=== PATIENT | female | born 1995 | race Caucasian/White ===

== ENCOUNTER 2021-12-03 10:11 | Inpatient (IN) | payer OTHER ==
[2021-12-03 11:20] LABS: BILIRUBIN NEGATIVE (NEGATIVE); BLOOD NEGATIVE Ery/uL (NEGATIVE); CLARITY CLEAR (CLEAR); COLOR YELLOW (YELLOW); GLUCOSE (U) NORMAL (NORMAL); LEUKOCYTES 1+ Leu/uL (NEGATIVE); NITRITE NEGATIVE (NEGATIVE); PROTEIN NEGATIVE (NEGATIVE); SPECIFIC GRAVITY 1.015 (1.001-1.030); UROBILINOGEN 0.2 mg/dL (0.2-1.0); pH 7.5 (5.0-9.0)
[2021-12-03 11:30] LABS: HCT 36.4 % (37.0-47.0); HGB 12.1 g/dl (12.5-16.0); MCH 28.3 pg (25.0-31.0); MCHC 33.2 g/dL (32.0-36.0); MCV 85.2 fL (78.0-100.0); MPV 10.3 fL (6.0-9.5); RBC 4.27 M/uL (4.20-5.40); RDW 13.7 % (11.5-14.0); WBC 14.9 K/uL (4.0-10.5)
[2021-12-03 11:54] LABS: ALBUMIN 2.7 g/dL (3.4-5.0); BILIRUBIN - TOTAL 0.9 mg/dL (0.2-1.0); BUN/CREAT RATIO (CALC) 10.7 RATIO; CREATININE 0.56 mg/dL (0.51-0.95); GLOBULIN (CALCULATION) 3.8 g/dL; POTASSIUM 3.7 mmol/L (3.5-5.1); TOTAL PROTEIN 6.5 g/dL (6.4-8.2)
[2021-12-03 11:56] LABS: BACTERIA 1+; URINARY RBC RARE
[2021-12-05 07:53] LABS: HCT 30.6 % (37.0-47.0); HGB 9.7 g/dl (12.5-16.0); MCHC 31.7 g/dL (32.0-36.0); MCV 88.4 fL (78.0-100.0); MPV 10.3 fL (6.0-9.5); RBC 3.46 M/uL (4.20-5.40); RDW 14.2 % (11.5-14.0); WBC 17.1 K/uL (4.0-10.5)
[2021-12-06] MEDS ORDERED: PRENATAL FORMU1 EACH PO (12:30)
[2021-12-06] MEDS ORDERED: IBUPROFEN800 MG PO (12:31)
== END 2021-12-06 17:51 | disposition home or self-care (01) | DRG 787 ==
LOC: FOD 10:11 → FIS 10:11 → FOB 10:13 → FOD 17:14 → FOB 17:15
PROVIDERS: ADMIT Obstetrics & Gynecology
PROC: 10907ZC Drainage of Amniotic Fluid, Therapeutic from Products of Conception, Via Natural or Artificial Opening (ICD-10-PCS; 2021-12-04)
PROC: 10D00Z1 Extraction of Products of Conception, Low, Open Approach (ICD-10-PCS; principal; 2021-12-04 02:30)
DX: O62.1 Secondary uterine inertia (principal); D62 Acute posthemorrhagic anemia; O24.425 Gestational diabetes mellitus in childbirth, controlled by oral hypoglycemic drugs; Z37.0 Single live birth; Z3A.38 38 weeks gestation of pregnancy; O99.214 Obesity complicating childbirth; Z20.822 Contact with and (suspected) exposure to COVID-19; O99.344 Other mental disorders complicating childbirth; F41.9 Anxiety disorder, unspecified; O99.284 Endocrine, nutritional and metabolic diseases complicating childbirth; E03.9 Hypothyroidism, unspecified; O90.81 Anemia of the puerperium
CPT/HCPCS: 36415; 80053; 81001; 82947; 86850; 86900; 86901; 87088; J0456; J0595; J0690; J1885; J2001; J2274; J2370; J2405; J2916; J3010; J7030; J7050; J7120; U0002